=== PATIENT | male | born 1990 | race Caucasian/White ===

== ENCOUNTER 2018-08-14 14:44 | Emergency (ER) | payer OTHER ==
[~2018-08-14] VITALS: Ht 180.3 cm; Wt 127.5 kg
[2018-08-14 14:55] VITALS: Ht 180.3 cm; Wt 127.5 kg
[2018-08-14 19:16] VITALS: BP 122/78
== END 2018-08-14 19:16 | disposition home or self-care (01) ==
LOC: ED 14:44
DX: S61.011A Laceration without foreign body of right thumb without damage to nail, initial encounter (principal); W26.8XXA Contact with other sharp object(s), not elsewhere classified, initial encounter; Y93.89 Activity, other specified; Y92.89 Other specified places as the place of occurrence of the external cause; Y99.8 Other external cause status
CPT/HCPCS: 90715; J0696; J2001; Q0092

== ENCOUNTER 2018-08-16 09:38 | Emergency (ER) | payer OTHER ==
[~2018-08-16] VITALS: Ht 180.3 cm; Wt 127.0 kg
[2018-08-16 10:09] VITALS: BP 98/74; Ht 180.3 cm; Wt 127.0 kg
== END 2018-08-16 11:42 | disposition home or self-care (01) ==
LOC: ED 09:38
DX: S61.011D Laceration without foreign body of right thumb without damage to nail, subsequent encounter (principal); X58.XXXD Exposure to other specified factors, subsequent encounter

== ENCOUNTER 2018-08-30 14:48 | Emergency (ER) | payer OTHER ==
[~2018-08-30] VITALS: Ht 180.3 cm; Wt 128.0 kg
[2018-08-30 15:05] VITALS: BP 117/77; Ht 180.3 cm; Wt 128.0 kg
== END 2018-08-30 17:07 | disposition home or self-care (01) ==
LOC: ED 14:48
DX: S61.011D Laceration without foreign body of right thumb without damage to nail, subsequent encounter (principal); X58.XXXD Exposure to other specified factors, subsequent encounter